=== PATIENT | male | born 1985 | race African-American/Black ===

== ENCOUNTER 2020-05-25 09:06 | Emergency (ER) | payer OTHER ==
[2020-05-25 09:13] VITALS: TEMP 97.6; BMI 23.1
[2020-05-25 11:00] LABS: BASO % 0.9 % (0-2.0); EOS % 1.3 % (0-4.5); HEMATOCRIT 43.1 % (35.4-49); HEMOGLOBIN 14.2 GM/dL (11.7-16.9); LYMPH % 24.1 % (8-40); MCH 32.5 pg (25.7-33.7); MCHC 32.9 g/dl (32.0-35.9); MEAN CELL VOLUME 98.9 fl (80-96); MONO % 6.2 % (3.8-10.2); NEUT % 67.5 % (42.8-82.8); PLATELET COUNT 244 K/MM3 (134-434); RBC 4.36 M/mm3 (4.00-5.60); RDW 14.9 % (11.9-15.9); WHITE BLOOD COUNT 8.7 K/mm3 (4.0-10.0)
[2020-05-25 11:10] LABS: PROTHROMBIN TIME (PATIENT) 12.1 SEC (9.7-13.0)
[2020-05-25 11:15] LABS: ACTIVATED PTT 36.9 SECONDS (25.2-36.5)
[2020-05-25 11:22] VITALS: BP 118/81; PULSE 87
[2020-05-25 11:32] LABS: EPI CELLS 2 /uL (0-25.1); HYALINE CASTS 0 /uL (0-3.1); URINE APPEARANCE CLEAR; URINE BACTERIA 56 /uL (0-1359); URINE BILIRUBIN NEGATIVE (NEGATIVE); URINE COLOR YELLOW; URINE GLUCOSE (UA) NEGATIVE (NEGATIVE); URINE KETONE NEGATIVE (NEGATIVE); URINE LEUK ESTERASE NEGATIVE (NEGATIVE); URINE NITRITE NEGATIVE (NEGATIVE); URINE PROTEIN NEGATIVE (NEGATIVE); URINE RBC 3 /uL (0-23.9); URINE UROBILINOGEN 0.2 mg/dL (0.2-1.0); URINE WBC 15 /uL (0-25.8)
[2020-05-25 11:36] LABS: ALBUMIN 4.3 g/dl (3.4-5.0)
[2020-05-25 11:38] LABS: BLOOD UREA NITROGEN 14.8 mg/dL (7-18); CALCIUM 9.8 mg/dL (8.5-10.1)
[2020-05-25 11:42] LABS: CREATININE 0.8 mg/dL (0.55-1.3)
[2020-05-25 11:43] LABS: BILIRUBIN,TOTAL 0.6 mg/dL (0.2-1); TOT PROT 7.6 g/dl (6.4-8.2)
== END 2020-05-25 14:59 | disposition home or self-care (01) ==
LOC: JER 09:06
DX: K46.9 Unspecified abdominal hernia without obstruction or gangrene (principal)
CPT/HCPCS: 36415; 74177-TC; 76870-TC; 80053; 81003; 83605; 85025; 85610; 85730; 86850; 86900; 86901; 87086; 87491; 87591; 99284-25; C9803; Q9967; U0003

== ENCOUNTER 2020-06-03 04:23 | Day surgery (SDC) | payer OTHER ==
[2020-05-30 16:51] VITALS: BMI 23.1
[2020-06-03] MEDS ORDERED: BUPIVACAINE LIPOSOME/PF (EXPAREL) 266 MG/20 ML VIAL ONE (07:25)
[2020-06-03] MEDS ORDERED: BUPIVACAINE HCL 100 ML ONE (07:26)
[2020-06-03] MEDS ORDERED: MIDAZOLAM HCL 2 MG/2 ML SINGLE DOSE VIAL ONE ×2 (07:30)
[2020-06-03] MEDS ORDERED: ceFAZolin SODIUM 1 GM VIAL ONE (08:44)
[2020-06-03] MEDS ORDERED: LIDOCAINE HCL/PF 2% SDV 5ML VIAL ONE (08:44)
[2020-06-03] MEDS ORDERED: PROPOFOL 20 ML ONE ×2 (08:45)
[2020-06-03] MEDS ORDERED: LIDOCAINE HCL 1%, 10 MG/ML (20ML VIAL) ONE (08:57)
[2020-06-03] MEDS ORDERED: BUPIVACAINE HCL 50 ML ONE (08:57)
[2020-06-03] MEDS ORDERED: ceFAZolin 2 GRAM PREMIX BAG IVPB ONE (09:00)
[2020-06-03] MEDS ORDERED: BUPIVACAINE HCL/PF 0.5% (5MG/ML) 10 ML VIAL IJ ONE (09:10)
[2020-06-03] MEDS ORDERED: LIDOCAINE HCL 1% PRESERVATIVE FREE - 30ML VIAL IJ ONE (09:10)
[2020-06-03] MEDS ORDERED: DEXAMETHASONE SOD PHOSPHATE 4 MG/1 ML VIAL ONE (09:15)
[2020-06-03] MEDS ORDERED: ONDANSETRON 4 MG/2 ML VIAL ONE (09:15)
[2020-06-03] MEDS ORDERED: ONDANSETRON 4 MG/2 ML VIAL IVPUSH PRN (11:19)
[2020-06-03] MEDS ORDERED: PROMETHAZINE HCL 25 MG/1 ML VIAL IVPUSH PRN (11:19)
[2020-06-03] MEDS ORDERED: IBUPROFEN 800 MG/8 ML IJ IVPB PRN (11:19)
[2020-06-03] MEDS ORDERED: oxyCODONE HCL 5 MG TABLET PO PRN (11:19)
[2020-06-03] MEDS ORDERED: MEPERIDINE HCL 25 MG/ML VIAL ONE (11:20)
[2020-06-03] MEDS ORDERED: ACETAMINOPHEN 1000 MG/100 ML VIAL (NON FORMULARY) IVPB ONE (11:20)
[2020-06-03] MEDS ORDERED: MEPERIDINE HCL 25 MG/ML VIAL IVPUSH PRN (11:20)
[2020-06-03] MEDS ORDERED: LACTATED RINGERS SOLUTION 1,000 ML IV SCH (11:30)
[2020-06-03] MEDS ORDERED: ACETAMINOPHEN INJECTION 100 ML IVPB ONE (11:31)
[2020-06-03 13:12] VITALS: BP 148/91; PULSE 91; TEMP 97.5
== END 2020-06-03 13:00 | disposition home or self-care (01) ==
LOC: JASU-SURG 04:23
PROVIDERS: ATTEND Surgery
PROC: 0YU50JZ Supplement Right Inguinal Region with Synthetic Substitute, Open Approach (ICD-10-PCS; principal; 2020-06-03 09:00)
DX: K40.30 Unilateral inguinal hernia, with obstruction, without gangrene, not specified as recurrent (principal)
CPT/HCPCS: 94760; J0131